=== PATIENT | male | born 1945 | race African-American/Black ===

== ENCOUNTER 2020-11-30 15:42 | Emergency (ER) | payer OTHER ==
[2020-11-30 17:36] VITALS: BP 141/65
== END 2020-11-30 17:38 | disposition home or self-care (01) | DRG 151 ==
LOC: ED 15:42
DX: R04.0 Epistaxis (principal); M25.552 Pain in left hip; I10 Essential (primary) hypertension; E78.5 Hyperlipidemia, unspecified; R25.1 Tremor, unspecified; Z79.82 Long term (current) use of aspirin